=== PATIENT | female | born 1995 | race Two or more races ===

== ENCOUNTER 2024-02-03 15:51 | Emergency (ER) | payer BC ==
[~2024-02-03] VITALS: Ht 157.5 cm; Wt 91.7 kg
[2024-02-03 18:51] VITALS: TEMP 98.4
[2024-02-03 19:11] VITALS: BP 136/92; PULSE 82; RESP 20; O2SAT 98
[2024-02-03] MEDS ORDERED: DOXY-448 PO (20:34)
[2024-02-03] MEDS ORDERED: ACET500T58 PO (20:34)
[2024-02-04] MEDS ORDERED: NITR-52 PO (05:03)
== END 2024-02-03 20:34 | disposition home or self-care (01) ==
LOC: ER 15:51
DX: L03.317 Cellulitis of buttock (principal); E78.5 Hyperlipidemia, unspecified; K21.9 Gastro-esophageal reflux disease without esophagitis; Z88.8 Allergy status to other drugs, medicaments and biological substances; Z88.1 Allergy status to other antibiotic agents; Z79.899 Other long term (current) drug therapy
CPT/HCPCS: 81025

== ENCOUNTER 2024-02-04 01:19 | Emergency (ER) | payer BC ==
[~2024-02-04] VITALS: Ht 157.5 cm; Wt 86.0 kg
[~2024-02-04 01:19] MED LIST: ACET500T58 PO; DOXY-448 PO
[2024-02-04] MEDS ORDERED: LORazepam 2MG/ML-1ML VIAL IV ONE (01:45)
[2024-02-04 02:04] VITALS: BP 121/79; PULSE 79; RESP 16; O2SAT 95
[2024-02-04 02:26] LABS: Anion Gap 6 (5-15); Carbon Dioxide 25 mmol/L (20-30); Chloride 106 mmol/L (98-107); Potassium 3.5 mmol/L (3.5-5.1); Sodium 137 mmol/L (136-145)
[2024-02-04 02:27] LABS: Calcium 9.6 mg/dL (8.7-10.4)
[2024-02-04 02:32] LABS: BUN/Creatinine Ratio 17.2 (10.0-20.0); Blood Urea Nitrogen 11 mg/dL (9-23); Glucose 106 mg/dL (74-106)
[2024-02-04 02:37] LABS: Basophils # (auto) 0.2 10 ^3/uL (0-0.2); Basophils % (auto) 1.8 % (0.0-2.0); Eosinophils # (auto) 0.1 10 ^3/uL (0-0.8); Eosinophils % (auto) 1.2 % (0.0-7.0); Hematocrit 45.9 % (36.0-46.0); Hemoglobin 14.6 g/dL (12.2-16.2); Lymphocytes % (auto) 39.9 % (10.0-50.0); Mean Corpuscular Hemoglobin 28.5 pg (28.0-32.0); Mean Corpuscular Hgb Conc. 31.7 g/dL (32.0-36.0); Mean Corpuscular Volume 89.7 fL (80.0-100.0); Monocytes # (auto) 0.6 10 ^3/uL (0-1.3); Neutrophils # (auto) 5.1 10 ^3/uL (1.6-8.6); Neutrophils % (auto) 51.1 % (37.0-80.0); Nucleated Red Blood Cells % 0.3 %; Red Blood Cells 5.11 10^6/uL (4.0-5.20); Red Cell Distribution Width 13.9 % (11.8-14.3); White Blood Cell 9.9 10^3/uL (4.4-10.8)
[2024-02-04] MEDS: LORazepam 2MG/ML-1ML VIAL IV ONE (02:43)
[2024-02-04] MEDS: SODIUM CHLORIDE 0.9% 1,000 ML IV ONE (03:21)
[2024-02-04 03:51] LABS: Urine Bacteria FEW /hpf (None Seen); Urine Blood Negative /uL (Negative); Urine Clarity Clear (Clear); Urine Color Yellow (Yellow); Urine Mucus FEW (None Seen); Urine Protein, UAD Negative (Negative); Urine Specific Gravity 1.025 (1.001-1.035); Urine Urobilinogen Normal (Negative); Urine WBC 8 /hpf (0 - 5)
[2024-02-04] MEDS ORDERED: NITR-52 PO (05:03)
== END 2024-02-04 05:24 | disposition home or self-care (01) ==
LOC: EDBD 01:19 → ER 01:19
DX: R56.9 Unspecified convulsions (principal); N39.0 Urinary tract infection, site not specified; K21.9 Gastro-esophageal reflux disease without esophagitis; E78.5 Hyperlipidemia, unspecified
CPT/HCPCS: 36415; 80048; 81001; 81025; 85025; 93005; 96361; 96374; 99284; J2060; J7030

== ENCOUNTER 2024-03-20 01:00 | Emergency (ER) | payer OTHER ==
[~2024-03-20] VITALS: Ht 165.1 cm; Wt 80.0 kg
[~2024-03-20 01:00] MED LIST changes: +NITR-52 PO
[2024-03-20 01:50] LABS: Basophils # (auto) 0 10 ^3/uL (0-0.2); Basophils % (auto) 0.2 % (0.0-2.0); Eosinophils # (auto) 0 10 ^3/uL (0-0.8); Eosinophils % (auto) 0.4 % (0.0-7.0); Hematocrit 46.3 % (36.0-46.0); Hemoglobin 15.2 g/dL (12.2-16.2); Lymphocytes # (auto) 0.9 10 ^3/uL (0.4-5.4); Lymphocytes % (auto) 8.2 % (10.0-50.0); Mean Corpuscular Hemoglobin 28.5 pg (28.0-32.0); Mean Corpuscular Hgb Conc. 32.8 g/dL (32.0-36.0); Mean Corpuscular Volume 87.1 fL (80.0-100.0); Monocytes # (auto) 0.6 10 ^3/uL (0-1.3); Monocytes % (auto) 5.1 % (0.0-12.0); Neutrophils % (auto) 86.1 % (37.0-80.0); Red Blood Cells 5.32 10^6/uL (4.0-5.20); Red Cell Distribution Width 13.6 % (11.8-14.3); White Blood Cell 11.6 10^3/uL (4.4-10.8)
[2024-03-20] MEDS: SODIUM CHLORIDE 0.9% 1,000 ML IV ONE (02:07)
[2024-03-20] MEDS: ONDANSETRON HCL 4 MG/2 ML VIAL IV ONE (02:07)
[2024-03-20 02:09] LABS: Alanine Aminotransferase 38 U/L (7-40); Albumin 4.2 g/dL (3.2-4.8); Alkaline Phosphatase 82 U/L (46-116); Anion Gap 11 (5-15); Aspartate Aminotransferase 26 U/L (13-40); BUN/Creatinine Ratio 10.4 (10.0-20.0); Bilirubin, Total 0.8 mg/dL (0.2-1.0); Blood Urea Nitrogen 7 mg/dL (9-23); Calcium 9.8 mg/dL (8.7-10.4); Carbon Dioxide 20 mmol/L (20-30); Chloride 105 mmol/L (98-107); Glucose 154 mg/dL (74-106); Lipase 30 U/L (12-53); Potassium 3.7 mmol/L (3.5-5.1); Sodium 136 mmol/L (136-145); Total Protein 7.2 g/dL (5.7-8.2)
[2024-03-20 02:25] VITALS: TEMP 98.9
[2024-03-20] MEDS ORDERED: ZOFR4T PO (03:50)
[2024-03-20 04:00] VITALS: BP 105/68; PULSE 84; RESP 21; O2SAT 94
== END 2024-03-20 04:42 | disposition home or self-care (01) ==
LOC: ER 01:00 → EDBD 01:00 → ER 01:04
DX: R10.13 Epigastric pain (principal); R10.2 Pelvic and perineal pain; R11.2 Nausea with vomiting, unspecified; R19.7 Diarrhea, unspecified; K21.9 Gastro-esophageal reflux disease without esophagitis; E78.5 Hyperlipidemia, unspecified; Z79.2 Long term (current) use of antibiotics; Z79.899 Other long term (current) drug therapy; Z88.1 Allergy status to other antibiotic agents; Z88.8 Allergy status to other drugs, medicaments and biological substances
CPT/HCPCS: 36415; 74176; 80053; 82962; 83690; 84702; 85025; 96360; 99284; J7030; J2405